=== PATIENT | female | born 1955 | race Caucasian/White ===

== ENCOUNTER → 2019-03-10 | Outpatient (CLI) | payer BC ==
[~2019-03-10] MED LIST: CITA20 PO; Estradiol0.5 MG PO; LEVSOD50 PO; LOSARTAN-HCTZ1 EACH PO; Lovastatin10 MG PO
[2019-03-10 17:10] LABS: Anion Gap 5 mmol/L (6-16); Blood Urea Nitrogen 15 mg/dL (8-24); CO2, Blood 30 mmol/L (21-32); Calcium, Blood 9.1 mg/dL (8.5-10.1); Chloride, Blood 104 mmol/L (98-108); Creatinine, Blood 0.83 mg/dL (0.40-1.00); Free Thyroxine 1.07 ng/dL (0.70-1.60); Glomerular Filtration Rate >60 (60-); Glucose, Blood 89 mg/dL (70-99); Potassium, Blood 3.7 mmol/L (3.5-5.5); Sodium, Blood 139 mmol/L (136-145)
== END | disposition home or self-care (01) ==
LOC: LAB SHORT 15:04 → LAB 15:04
PROVIDERS: Hospitalist
DX: E03.9 Hypothyroidism, unspecified (principal); I10 Essential (primary) hypertension
CPT/HCPCS: 80048; 84439; 84443

== ENCOUNTER → 2019-09-30 | Outpatient (CLI) | payer BC | END | disposition home or self-care (01) | DX: L57.0 Actinic keratosis (principal) ==

== ENCOUNTER → 2020-06-17 | Outpatient (CLI) | payer BC ==
[2020-06-17 16:11] LABS: Free Thyroxine 1.17 ng/dL (0.70-1.60)
[2020-06-17 16:14] LABS: Thyroid Stimulating Hormone 1.29 uIU/mL (0.360-4.800)
== END ==
LOC: LAB 14:28 → LAB SHORT 14:28
PROVIDERS: Hospitalist
DX: E03.9 Hypothyroidism, unspecified (principal)
CPT/HCPCS: 84439; 84443

== ENCOUNTER → 2020-09-07 | Outpatient (CLI) | payer BC | END | disposition home or self-care (01) | LOC: LAB SHORT 12:02 | DX: L57.0 Actinic keratosis (principal); L85.8 Other specified epidermal thickening | CPT/HCPCS: 88305 ==

== ENCOUNTER → 2021-11-23 | Outpatient (CLI) | payer BC ==
[2021-11-23 19:09] LABS: Alanine Aminotransfer (ALT/SGP 28 U/L (12-78); Albumin, Blood 4.1 g/dL (3.4-5.0); Albumin/Globulin Ratio 1.3 (0.8-1.8); Alk Phos 66 U/L (50-136); Anion Gap 4 mmol/L (6-16); Aspartate Aminotrans (AST/SGOT 31 U/L (12-37); Bilirubin, Total 0.5 mg/dL (0.1-1.0); Blood Urea Nitrogen 19 mg/dL (8-24); CHOL/HDL RATIO 2.8; CO2, Blood 30 mmol/L (21-32); Calcium, Blood 10.3 mg/dL (8.5-10.1); Chloride, Blood 105 mmol/L (98-108); Cholesterol 301 mg/dL (50-200); Free Thyroxine 1.17 ng/dL (0.70-1.60); Globulin, Blood 3.1 g/dL (2.2-4.0); Glucose, Blood 100 mg/dL (70-99); HDL Cholesterol 107 mg/dL (>39); LDL/HDL RATIO 1.6; Low Density Lipoprotein Chol 176 mg/dL (0-110); Potassium, Blood 4.4 mmol/L (3.5-5.5); Sodium, Blood 139 mmol/L (136-145); Total Protein, Blood 7.2 g/dL (6.4-8.2); Triglycerides 91 mg/dL (30-160); Very Low Density Lipoprot Chol 18 mg/dL (6-32)
[2021-11-23 19:35] LABS: Bun/Creatinine Ratio 20.9 (12.0-20.0); Creatinine, Blood 0.91 mg/dL (0.40-1.00); Glomerular Filtration Rate 70 (60-); Triiodothyronine, Free 2.89 pg/mL (2.18-3.98)
== END ==
LOC: LAB SHORT 11:55
PROVIDERS: Hospitalist
DX: I10 Essential (primary) hypertension (principal); E78.00 Pure hypercholesterolemia, unspecified; E03.9 Hypothyroidism, unspecified
CPT/HCPCS: 80053; 80061; 84439; 84443; 84481

== ENCOUNTER → 2022-08-23 | Outpatient (CLI) | payer BC ==
[2022-08-23 17:00] LABS: Anion Gap 5 mmol/L (6-16); Blood Urea Nitrogen 19 mg/dL (8-24); Bun/Creatinine Ratio 22.6 (12.0-20.0); CHOL/HDL RATIO 2.2; CO2, Blood 29 mmol/L (21-32); Calcium, Blood 9.7 mg/dL (8.5-10.1); Chloride, Blood 106 mmol/L (98-108); Cholesterol 231 mg/dL (50-200); Creatinine, Blood 0.84 mg/dL (0.40-1.00); Free Thyroxine 1.24 ng/dL (0.70-1.60); Glomerular Filtration Rate 77 (60-); Glucose, Blood 106 mg/dL (70-99); HDL Cholesterol 107 mg/dL (>39); Low Density Lipoprotein Chol 112 mg/dL (0-110); Potassium, Blood 3.7 mmol/L (3.5-5.5); Sodium, Blood 140 mmol/L (136-145); Triglycerides 60 mg/dL (30-160); Very Low Density Lipoprot Chol 12 mg/dL (6-32)
[2022-08-23 17:05] LABS: Triiodothyronine, Free 2.75 pg/mL (2.18-3.98)
== END | disposition home or self-care (01) ==
LOC: LAB SHORT 13:59
PROVIDERS: Hospitalist
DX: E03.9 Hypothyroidism, unspecified (principal); I10 Essential (primary) hypertension; E78.00 Pure hypercholesterolemia, unspecified
CPT/HCPCS: 80048; 80061; 84439; 84443; 84481

== ENCOUNTER → 2025-01-21 | Outpatient (CLI) | payer MEDICARE | END | disposition home or self-care (01) | LOC: LAB 09:50 → LAB SHORT 09:50 | DX: G44.52 New daily persistent headache (NDPH) (principal) | CPT/HCPCS: 85651 ==